=== PATIENT | female | born 2000 | race Caucasian/White ===

== ENCOUNTER 2021-12-11 05:10 | Emergency (ER) | payer OTHER ==
[~2021-12-11] VITALS: Ht 172.7 cm; Wt 125.0 kg
[2021-12-11 05:15] VITALS: TEMP 98.1
[2021-12-11 05:43] LABS: BASO % 0.3 % (0.0-2.0); EOS # 0.6 K/mm3 (0.0-0.7); EOS % 7.4 % (0.0-4.0); GRAN # 3.8 K/mm3 (1.4-6.5); GRAN % 48.9 % (42.2-75.2); HEMATOCRIT 40.7 % (37.0-47.0); HEMOGLOBIN 13.4 g/dl (12.5-16.0); LYMPH # 2.6 K/mm3 (1.2-3.4); MEAN CELL VOLUME 89 fl (80.0-100.0); MEAN CORPUSCULAR HEMOGLOBIN 29 pg (27-31); MEAN CORPUSCULAR HGB CONC 33 g/dl (33.0-37.0); MONO # 0.7 K/mm3 (0.1-0.6); PLATELET COUNT 337 K/mm3 (130-400); REDCELL DISTRIBUTION WIDTH-CV 12.3 % (11.5-14.5)
[2021-12-11 06:06] LABS: ALBUMIN 3.6 gm/dL (3.5-5.0); BILIRUBIN,TOTAL 0.3 mg/dL (0.2-1.2); CALCIUM 8.9 mg/dL (8.4-10.2); CREATININE, serum 0.84 mg/dL (0.57-1.11); POTASSIUM 3.9 mmol/L (3.5-4.5); TOTAL PROTEIN 7.1 gm/dL (6.2-8.1)
[2021-12-11 06:12] LABS: TROPONIN-I 0.021 ng/mL (0.00-0.033)
[2021-12-11 06:53] VITALS: BP 131/91; PULSE 75
== END 2021-12-11 06:55 | disposition home or self-care (01) ==
LOC: COL.ER 05:10
PROVIDERS: Personal Emergency Response Attendant
DX: R07.89 Other chest pain (principal)